=== PATIENT | female | born 1975 | race Caucasian/White ===

== ENCOUNTER 2018-07-15 05:45 | Day surgery (SDC) | payer OTHER ==
[~2018-07-15 05:45] MED LIST: LOSARTAN-HCTZ1 EACH PO; ZANTAC300 MG PO
[2018-07-15] MEDS ORDERED: PERCOCET 5-3251 EACH PO (08:13)
[2018-07-15] MEDS ORDERED: RECTICARE30 GM TOP (08:13)
== END 2018-07-15 15:30 | disposition home or self-care (01) ==
LOC: CIR.AMB 05:45 → AMB-ENDOS 08:15 → EDBD 08:15 → CIR.AMB 08:15
DX: D12.9 Benign neoplasm of anus and anal canal (principal)